=== PATIENT | female | born 1965 | race Caucasian/White ===

== ENCOUNTER 2024-04-26 09:41 | Emergency (ER) | payer OTHER ==
[~2024-04-26] VITALS: Ht 172.7 cm; Wt 79.3 kg
[2024-04-26] MEDS ORDERED: DESV100T3 PO (10:39)
[2024-04-26] MEDS ORDERED: LEVO88TA3 PO (10:39)
[2024-04-26 10:41] LABS: HEMATOCRIT 39.3 % (36.0-47.0); HEMOGLOBIN 13.9 g/dl (12.0-15.5); MEAN CORPUSCULAR HEMOGLOBIN 32.7 pg (27.0-33.0); MEAN CORPUSCULAR HGB CONC 35.4 g/dl (32.0-36.5); MEAN CORPUSCULAR VOLUME 92.5 fl (80.0-96.0); PLATELET COUNT, AUTOMATED 331 10^3/uL (150-450); RED BLOOD COUNT 4.25 10^6/uL (4.00-5.40); WHITE BLOOD COUNT 7.2 10^3/uL (4.0-10.0)
[2024-04-26] MEDS ORDERED: ASPI-226 PO (10:46)
[2024-04-26] MEDS ORDERED: CENT1TAB PO (10:46)
[2024-04-26] MEDS ORDERED: BUPR1SUB33 SL (10:46)
[2024-04-26] MEDS ORDERED: PANT40TA29 PO (10:46)
[2024-04-26] MEDS ORDERED: C 50TAB PO (10:48)
[2024-04-26] MEDS ORDERED: IRON27TA2 PO (10:48)
[2024-04-26] MEDS ORDERED: VITAD400CA FT (10:48)
[2024-04-26 11:04] LABS: AMPHETAMINES LEVEL URINE NEGATIVE (NEGATIVE); BARBITURATES URINE NEGATIVE (NEGATIVE); BENZODIAZEPINES URINE NEGATIVE (NEGATIVE); COCAINE METABOLITE URINE NEGATIVE (NEGATIVE); METHADONE URINE NEGATIVE (NEGATIVE); OPIATES URINE NEGATIVE (NEGATIVE); PHENCYCLIDINE URINE NEGATIVE (NEGATIVE)
[2024-04-26 11:07] LABS: ETHYL ALCOHOL (ETHANOL) 0.004 % (0.000-0.010)
[2024-04-26 11:08] LABS: ALKALINE PHOSPHATASE 104 U/L (46-116); ALT/SGPT 19 U/L (7.0-40); AST/SGOT 21 U/L (<34); BILIRUBIN,DIRECT < 0.1 MG/DL (<0.4); BILIRUBIN,TOTAL 0.2 MG/DL (0.3-1.2); BLOOD UREA NITROGEN 13 MG/DL (9-23); CALCIUM LEVEL 9.3 MG/DL (8.5-10.1); CARBON DIOXIDE LEVEL 26 MMOL/L (20-31); CHLORIDE LEVEL 108 MMOL/L (98-107); CREATININE FOR GFR 0.84 MG/DL (0.55-1.30); GLOMERULAR FILTRATION RATE > 60.0 (>51); GLUCOSE, FASTING 124 MG/DL (60-100); POTASSIUM SERUM 4.2 MMOL/L (3.5-5.1); SALICYLATE LEVEL < 3.0 MG/DL (<30); SODIUM LEVEL 139 MMOL/L (136-145); TOTAL PROTEIN 6.9 G/DL (5.7-8.2)
[2024-04-26 11:11] LABS: THYROID STIMULATING HORMONE 2.817 uIU/ML (0.55-4.78)
[2024-04-26 11:22] LABS: CANNABINOIDS URINE POSITIVE (NEGATIVE)
[2024-04-26] MEDS ORDERED: THERTAB52 PO (11:31)
[2024-04-26] MEDS ORDERED: OLAN5ZYD PO (11:31)
[2024-04-26] MEDS ORDERED: FERR325T3 PO (11:31)
[2024-04-26] MEDS ORDERED: D 101000 PO (11:31)
[2024-04-26] MEDS ORDERED: TREL1AER INH (11:33)
[2024-04-26] MEDS ORDERED: HOME MED LIST COMPLETE! XX SCH (11:35)
[2024-04-26 13:45] VITALS: BP 120/64; TEMP 98; O2SAT 97
== END 2024-04-26 13:47 | disposition home or self-care (01) ==
LOC: M ED 09:41
DX: F32.A Depression, unspecified (principal); F12.10 Cannabis abuse, uncomplicated; Z87.891 Personal history of nicotine dependence; Z88.1 Allergy status to other antibiotic agents; Z79.1 Long term (current) use of non-steroidal anti-inflammatories (NSAID); Z79.810 Long term (current) use of selective estrogen receptor modulators (SERMs); Z79.899 Other long term (current) drug therapy

== ENCOUNTER 2024-09-27 15:22 | Emergency (ER) | payer OTHER ==
[~2024-09-27] VITALS: Ht 157.5 cm; Wt 54.5 kg
[~2024-09-27 15:22] MED LIST: ASPI-226 PO; BUPR1SUB33 SL; C 50TAB PO; CENT1TAB PO; D 101000 PO; DESV100T3 PO; FERR325T3 PO; IRON27TA2 PO; LEVO88TA3 PO; OLAN5ZYD PO; PANT40TA29 PO; THERTAB52 PO; TREL1AER INH; VITAD400CA FT
[2024-09-27 15:39] VITALS: TEMP 98.9
[2024-09-27 15:56] LABS: BASO # 0.1 10^3/uL (0.0-0.2); BASO % 0.5 % (0.0-1.0); EOS % 0.1 % (0.0-3.0); HEMOGLOBIN 14.1 g/dl (12.0-15.5); LYMPH # 1.7 10^3/uL (1.5-5.0); LYMPH % 12.8 % (24.0-44.0); MEAN CORPUSCULAR HGB CONC 35.3 g/dl (32.0-36.5); MEAN CORPUSCULAR VOLUME 90.9 fl (80.0-96.0); MONO # 0.4 10^3/uL (0.0-0.8); MONO % 3.3 % (2.0-8.0); NEUTROPHILS % 82.8 % (36.0-66.0); PLATELET COUNT, AUTOMATED 346 10^3/uL (150-450); WHITE BLOOD COUNT 13.2 10^3/uL (4.0-10.0)
[2024-09-27 16:24] LABS: BLOOD UREA NITROGEN 8 MG/DL (9-23); CALCIUM LEVEL 9.3 MG/DL (8.5-10.1); CARBON DIOXIDE LEVEL 18 MMOL/L (20-31); CHLORIDE LEVEL 113 MMOL/L (98-107); CREATININE FOR GFR 0.82 MG/DL (0.55-1.30); GLOMERULAR FILTRATION RATE > 60.0 (>51); GLUCOSE, FASTING 136 MG/DL (60-100); POTASSIUM SERUM 4.4 MMOL/L (3.5-5.1); SODIUM LEVEL 143 MMOL/L (136-145)
[2024-09-27] MEDS: ONDANSETRON 4MG 2ML VIAL IV ONE (18:00)
[2024-09-27 18:29] LABS: LIPASE 34 U/L (12-53)
[2024-09-27 18:31] LABS: ALKALINE PHOSPHATASE 93 U/L (35-104); ALT/SGPT 25 U/L (7.0-40); AST/SGOT 39 U/L (<34); BILIRUBIN,DIRECT < 0.1 MG/DL (<0.4); BILIRUBIN,TOTAL 0.3 MG/DL (0.3-1.2); TOTAL PROTEIN 7.1 G/DL (5.7-8.2)
[2024-09-27] MEDS: MAALOX 30 ML SUSP *UDC PO ONE (18:34)
[2024-09-27] MEDS: SUCRALFATE SUSP 1GM/10ML UD PO ONE (18:34)
[2024-09-27] MEDS ORDERED: ONDA-282 PO (18:58)
[2024-09-27] MEDS ORDERED: SUCR1SS PO (18:58)
[2024-09-27 19:00] VITALS: O2SAT 98
[2024-09-27 19:10] VITALS: BP 103/54
== END 2024-09-27 19:14 | disposition home or self-care (01) ==
LOC: M ED 15:22 → EDBD 15:22 → M ED 19:14
DX: K21.9 Gastro-esophageal reflux disease without esophagitis (principal); T88.7XXA Unspecified adverse effect of drug or medicament, initial encounter; R11.2 Nausea with vomiting, unspecified; E03.9 Hypothyroidism, unspecified; F32.A Depression, unspecified; F12.10 Cannabis abuse, uncomplicated; Z88.1 Allergy status to other antibiotic agents; Z79.1 Long term (current) use of non-steroidal anti-inflammatories (NSAID); Z79.810 Long term (current) use of selective estrogen receptor modulators (SERMs); Z79.899 Other long term (current) drug therapy
CPT/HCPCS: 80048; 80076; 83690; 85025; 93005; 96374; 99284; J2405

== ENCOUNTER → 2025-05-22 | Outpatient (RCR) ==
[~2025-05-22] MED LIST changes: +ONDA-282 PO; +SUCR1SS PO
== END ==
LOC: M EMP 04-25 15:20 → EDSTATUS 05-08 12:58 → M EMP 05-18 08:49
PROVIDERS: ATTEND Family Medicine
DX: Z20.828 Contact with and (suspected) exposure to other viral communicable diseases (principal)